=== PATIENT | male | born 1950 | race Two or more races ===

== ENCOUNTER → 2023-03-15 06:21 | Day surgery (SDC) | payer OTHER, SELFPAY ==
[2023-03-15 08:19] LABS: Glucose - Point of Care 106 mg/dl (70-99)
== END ==
LOC: GI 06:21
PROVIDERS: ATTENDING PHYSICIAN Internal Medicine Gastroenterology
DX: D50.9 Iron deficiency anemia, unspecified (principal); K57.30 Diverticulosis of large intestine without perforation or abscess without bleeding; K64.8 Other hemorrhoids; K22.70 Barrett's esophagus without dysplasia; K29.70 Gastritis, unspecified, without bleeding; K22.89 Other specified disease of esophagus; K31.89 Other diseases of stomach and duodenum
CPT/HCPCS: 45378; 43239; 88305; 82962; 88342